=== PATIENT | male | born 1950 | race Caucasian/White ===

== ENCOUNTER 2018-10-25 12:08 | Emergency (ER) | payer OTHER, SELFPAY ==
[2018-10-25] VITALS (69 sets, daily range): BP systolic 85–119; BP diastolic 56–93; PULSE 98–147; RESP 8–42; TEMP 36.3–36.7; O2SAT 95–99
--- NOTE | 2018-10-25 12:28 | ED.GENADUL_ITS ---
Discharge Plan Disposition Patient Disposition: HOME Condition: Improving Discharge Details Chief Complaint: Chest Pain Clinical Impression: Atrial fibrillation with RVR Primary Care Provider: Ac García ED Provider: Nelsy Castro Home Meds and New Rx's Prescriptions: New diltiazem HCl [Cardizem CD] 240 mg capsule,extended release 24hr 240 mg PO DAILY Qty: 30 RF: 0 diltiazem HCl [Cardizem] 30 mg tablet 30 mg PO DIRECTED PRN (Reason: tachycardia) Qty: 10 RF: 0 Eliquis 5 mg tablet 5 mg PO BID Qty: 60 RF: 0 Continued clonazepam 0.5 mg tablet,disintegrating 0.5 mg PO HS MDD 0.5 mg PRN (Reason: insomnia) Qty: 30 RF: 0 [place] Supplement 3 tab PO DAILY RF: 0 aspirin 325 mg Tablet 325 mg PO DAILY PRNRF: 0 Discharge Instructions Instructions: Atrial Fibrillation (ED) Additional Instructions: Take the 240 mg Cardizem CD daily as directed. Take the additional 30 mg of Cardizem as needed for heart rate greater than 140 beats per minute for more than 10 minutes. Call [facility] cardiology Dr. Hill tomorrow to schedule follow-up appointment for reevaluation within the next week. Return immediately to the emergency department any worsening or new concerning symptoms. Discharge Data Discharge Date/Time-TO BE ENTERED AT DEPARTURE: 10/25/18 20:11 Discharge Physician: Nelsy Castro Medical Decision Making 68-year-old male with a history of paroxysmal atrial fibrillation who presents with complaint of palpitations for the past 36 hours. Patient sent from PCP office where he was noted to be in rapid A. fib 140s this morning. Patient denies any chest pain or shortness of breath but does complain of intermittent lightheadedness. Heart rate 140s in atrial fibrillation on arrival. EKG notes a rate of 140s, afib, less than [address] depression noted in inferior and anterior lateral leads, no acute ST elevation. Due to patient's age history and complaint, will place an IV, bolus IV fluids labs and chest x-ray. Will give a dose of Cardizem IV and reassess. Pt is not anticoagulated. Pt may be a candidate for cardioversion. 1230 --patient is refusing chest x-ray. The risks of disability due to refusal explained to patient fully understands. 1340 --patient did not have an initial response to Cardizem, and a dose of metoprolol IV was ordered but just prior to administration, heart rate decreased to 80s-90s. Will repeat EKG. Blood pressure mildly decreased to 80s-90s. 1350 --d/w cardiology -- States if patient is completely sure of his start of symptoms less than 48 hours, can recommend cardioversion, but as he responded to oral medicine with rate control, may be safer to treat with Eliquis for 4 weeks and then follow-up with [facility] EP for cardioversion for weeks. Recommends Cardizem 120 mg ER once daily and can give 30 mg short-acting dose to use for heart rate greater than 140 for more than 10-minutes. Patient states he had some palpitations 1-2 months ago, and states he thinks this episode started yesterday. Patient states he would rather treat with medication rather than cardioversion at this time. 1400 --HR increased back to 130s-140s. Will give a dose of metoprolol 5 mg IV and reassess. 1645 --patient briefly had improvement of heart rate to 80s-90s but now back to 130s. Will start Cardizem drip and admit for rate control. 1900 --heart rate still elevated on 5 mg an hour of Cardizem drip, increased to 10 mg an hour and heart rate decreased to 110s. 1930 --d/w [facility] cardiology Dr. Hill who performed patient's ablation in 2008. States patient does not need Cardizem drip and can be discharged home. Patient has no complaints of chest pain or shortness of breath, 2 negative troponins and remainder of lab work unremarkable, he can be discharged home with follow-up as outpatient. Recommends 240 mg of Cardizem daily with additional 30 mg as needed for heart rate greater than 140 for 10 minutes. Agrees with plan for eliquis 5mg bid. Prior to giving PO cardizem here, HR 110s. Pt w/o acute complaints. Discussed with patient, and he feels good with discharge home. Will give dose of 250 mg p.o. now and tab of 30mg to go for home. Pt instructed to call [facility] tomorrow for cardiology appointment and to return here immediately with any concerns. Medical Records Medical records reviewed: Yes I reviewed the patient's medical records. Lab Data Lab results reviewed: Yes I reviewed the patient's lab results. Laboratory Tests Range/Units 10/25/18 10/25/18 10/25/18 12:30 12:30 16:15 WBC (4.4-10.8) k/cumm 10.15 RBC (4.50-6.00) m/cumm 5.61 Hgb (13.5-17.5) g/dL 16.8 Hct (40.0-50.0) % 50.9 H MCV (80-95) fL 90.7 MCH (27.0-33.0) pg 29.9 MCHC (32.0-36.0) g/dL 33.0 RDW (11.8-14.1) % 13.5 Plt Count (130-400) x1000/uL 250 MPV (8.0-11.0) fL 11.2 H Immature Gran % 0.2 Neutrophils % 69.2 Lymphocytes % 20.0 Monocytes % 8.2 Eosinophils % 2.1 Basophils % 0.3 Absolute Neutrophils (1.2-6.7) k/cumm 7.03 H Absolute Lymphocytes (1.2-3.4) k/cumm 2.03 Absolute Monocytes (0.11-0.7) k/cumm 0.83 H Absolute Eosinophils (0.0-0.7) k/cumm 0.21 Absolute Basophils (0.0-0.2) k/cumm 0.03 Sodium (136-145) mmol/L 139 Potassium (3.5-5.1) mmol/L 4.3 Chloride (98-107) mmol/L 104 Carbon Dioxide (21.0-32.0) mmol/L 25.2 Anion Gap (3-11) mmol/L 9.8 BUN (7-18) mg/dL 17 Creatinine (0.70-1.30) mg/dL 1.23 Estimated GFR/1.73 m2 (mL/min/1.73m2) 58.69 Glucose (70-100) mg/dL 97 Calcium (8.5-10.1) mg/dL 9.2 Magnesium (1.8-2.4) mg/dL 2.1 Total Bilirubin (0.2-1.0) mg/dL 0.8 AST (15-37) U/L 27 ALT (12-78) U/L 35 Alkaline Phosphatase (46-116) U/L 73 Troponin I (0.00-0.06) ng/mL < 0.02 0.02 Total Protein (6.4-8.2) g/dL 7.2 Albumin (3.4-5.0) g/dL 3.8 ECG Data Attestation: I personally reviewed and interpreted this ECG (s) as follows: Interpretation: Initial EK: rate 142, afib, Less than 1mm ST depression noted in II, III, aVF, V4-6. No acute ST elevation. Repeat EK: rate of 92, Atrial bigeminy, PACs, First degree block. No acute ST elevation or depression. HPI General Mode of arrival: ambulatory . Date/Time Provider Initiated Documentation: 10/25/18 12:26 . Limitations to Documentation: no limitations . Information obtained by: patient . HPI Narrative: Patient is a 68-year-old male with a history of paroxysmal atrial fibrillation who presents with palpitations and tachycardia since 130 yesterday morning. Patient admits to occasional lightheadedness but denies any chest pain or shortness of breath. Patient states he was first diagnosed with atrial fibrillation 15 years ago and states he had an ablation approximately 10 years ago. Patient states he had been on medication for atrial fibrillation previously but not since 10 years ago. Patient was seen at PCP office this morning for the same complaint and sent here for evaluation. Related Data Home Medications Medication Instructions Recorded Confirmed [place] Supplement 3 tab PO DAILY 05/16/17 10/25/18 clonazepam 0.5 mg disintegrating 0.5 mg PO HS PRN #30 tab MDD 0.5 mg 09/06/18 10/25/18 tablet apixaban [Eliquis] 5 mg PO BID #60 tab 10/25/18 aspirin 325 mg PO DAILY PRN 10/25/18 10/25/18 diltiazem HCl [Cardizem CD] 240 mg PO DAILY #30 cap 10/25/18 diltiazem HCl [Cardizem] 30 mg PO DIRECTED PRN #10 tab 10/25/18 Previous Rx's Medication Instructions Recorded clonazepam 0.5 mg disintegrating 0.5 mg PO HS PRN #30 tab MDD 0.5 mg 09/06/18 tablet apixaban [Eliquis] 5 mg PO BID #60 tab 10/25/18 diltiazem HCl [Cardizem CD] 240 mg PO DAILY #30 cap 10/25/18 diltiazem HCl [Cardizem] 30 mg PO DIRECTED PRN #10 tab 10/25/18 Allergies Allergy/AdvReac Type Severity Reaction Status Date / Time No Known Drug Allergies Allergy Verified 10/25/18 12:26 General Stated Complaint: Chest Pain PATRICIO: 2 Review of Systems Review of Systems All systems reviewed & are unremarkable except as noted in HPI and below Constitutional Reports as per HPI, Denies chills and Denies fever(s) Eyes Denies blurry vision ENT Reports dizziness, Denies sore throat and Denies throat swelling Cardiovascular Denies chest pain, Reports rapid heart rate, Reports palpitations and Denies dyspnea Respiratory Denies dyspnea Gastrointestinal Denies abdominal pain, Denies diarrhea and Denies vomiting Genitourinary Denies hematuria and Denies dysuria Musculoskeletal Denies back pain and Denies numbness Integumentary/Breasts Denies lesions and Denies rash Neurologic Reports dizziness and Denies numbness Endocrine Reports palpitations Allergic/Immunologic Denies throat swelling [facility] Medical History Paroxysmal atrial fibrillation (Acute) Surgical History History of cardiac radiofrequency ablation (Acute) History of tonsillectomy (Chronic) Family History Mother Breast cancer Father Lung cancer Sister No problems noted. Brother No problems noted. Sister No problems noted. 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 pets and animals: Yes pets and animals: cat(s) and dog(s) frequency: decline to answer duration: decline to answer Smoking/Tobacco Use Status: Former Tobacco Use quit date: 10/18/73 alcohol intake: current alcohol intake frequency: 0-2 drinks per day Alcohol type: wine and hard liquor substance use type: former substance user and marijuana keshawn/pentecostalism: Other special keshawn needs: No Exam Const General: cooperative, healthy appearing and no acute distress HENMT Head: normal to inspection Face and sinus: normal facial exam Eyes General: appearance normal, both eyes and all related structures EOM: EOM intact bilaterally Neck Neck: normal visual inspection and No submandibular swelling Lymphatic: no lymphadenopathy noted Chest Chest: normal inspection of the chest and no tenderness Resp Effort & Inspection: normal respiratory effort and able to speak in complete sentences Auscultation: clear to auscultation bilaterally Cardio Rate: tachycardic Rhythm: abnormal rhythm irregularly irregular GI Inspection: normal to inspection Palpation: soft, not firm, not rigid and nontender Auscultation: normal bowel sounds Skin General skin exam: no rashes or lesions noted Neuro General: alert, awake and oriented x3 Cognition: normal cognition Speech: speech normal Motor: muscle tone normal throughout Sensory Exam: no sensory deficits noted Extrem General: normal to inspection, full ROM, normal capillary refill, no calf tenderness bilaterally and no edema Psych Appearance: grossly normal Mental Status: mental status grossly normal Speech and Movement: speech and movement normal Affect: normal affect Course Vital Signs Temperature 97.3 F L 10/25/18 12:19 Pulse 140 H 10/25/18 12:19 Respiratory Rate 16 10/25/18 12:19 Blood Pressure 110/83 10/25/18 12:19 Pulse Oximetry 98 10/25/18 12:19 Temperature 97.3 F L 10/25/18 12:19 Temperature Source Skin 10/25/18 12:19 Pulse 140 H 10/25/18 12:19 Respiratory Rate 16 10/25/18 12:19 Respiratory Effort Non-Labored 10/25/18 12:23 Blood Pressure 110/83 10/25/18 12:19 Blood Pressure Position Sitting 10/25/18 12:19 Pulse Oximetry 98 10/25/18 12:19 Oxygen Delivery Method Room Air 10/25/18 12:19 Oxygen Flow Rate 0 10/25/18 12:19 Pain Level 1 10/25/18 12:19
[2018-10-25 12:54] LABS: Abs Immature Grans 0.02 k/cumm (0.0-0.09); Absolute Basophil Count 0.03 k/cumm (0.0-0.2); Absolute Eosinophil Count 0.21 k/cumm (0.0-0.7); Absolute Lymphocyte Count 2.03 k/cumm (1.2-3.4); Absolute Monocyte Count 0.83 k/cumm (0.11-0.7); Absolute Neutrophil Count 7.03 k/cumm (1.2-6.7); Basophils % 0.3; Eosinophils % 2.1; HCT 50.9 % (40.0-50.0); HGB 16.8 g/dL (13.5-17.5); Immature Grans % 0.2; Mean Corpuscular Hemoglobin 29.9 pg (27.0-33.0); Mean Corpuscular Volume 90.7 fL (80-95); Mean Platelet Volume 11.2 fL (8.0-11.0); Monocytes % 8.2; Neutrophils % 69.2; Platelet Count 250 x1000/uL (130-400); RBC 5.61 m/cumm (4.50-6.00); RBC Distribution Width 13.5 % (11.8-14.1); White Blood Cell Count 10.15 k/cumm (4.4-10.8)
[2018-10-25] MEDS: Normal Saline 1,000 ML 1000 ML IV (13:02)
[2018-10-25 13:18] LABS: ALT 35 U/L (12-78); AST 27 U/L (15-37); Albumin 3.8 g/dL (3.4-5.0); Alkaline Phosphatase 73 U/L (46-116); Anion Gap 9.8 mmol/L (3-11); BUN 17 mg/dL (7-18); Bilirubin, Total 0.8 mg/dL (0.2-1.0); CO2 25.2 mmol/L (21.0-32.0); CREATININE 1.23 mg/dL (0.70-1.30); Calcium 9.2 mg/dL (8.5-10.1); Chloride 104 mmol/L (98-107); Estimated GFR 58.69 (mL/min/1.73m2); Glucose 97 mg/dL (70-100); Magnesium 2.1 mg/dL (1.8-2.4); Potassium 4.3 mmol/L (3.5-5.1); Sodium 139 mmol/L (136-145); Total Protein 7.2 g/dL (6.4-8.2); Troponin I < 0.02 ng/mL (0.00-0.06)
[2018-10-25] MEDS: Enoxaparin 100 MG/ML SYR 88 MG SC (14:46)
[2018-10-25] MEDS: Metoprolol 5 MG/5 ML VIAL IVP (14:58)
[2018-10-25 16:41] LABS: Troponin I 0.02 ng/mL (0.00-0.06)
== END 2018-10-25 20:11 | disposition home or self-care (01) ==
LOC: ER 17:35
PROVIDERS: Emergency Provider Physician Assistant; PCP Emergency Medicine
DX: I48.0 Paroxysmal atrial fibrillation (principal)
CPT/HCPCS: 36415; 80053; 93005; 96361; 96365; 96372; 96375; 96376; 99284; 83735; 84484; 85025; 93010; J1650

== ENCOUNTER 2018-11-02 15:42 | Outpatient (CLI) | payer OTHER, SELFPAY ==
[2018-11-02 16:54] LABS: TSH 3.31 uIU/mL (0.358-3.74)
== END 2018-11-02 16:02 ==
PROVIDERS: PCP Emergency Medicine; Visit Provider Emergency Medicine
DX: E03.9 Hypothyroidism, unspecified (principal)
CPT/HCPCS: 36415; 84443

== ENCOUNTER 2018-11-04 01:52 | Outpatient (CLI) | payer OTHER, SELFPAY ==
--- NOTE | 2018-11-28 09:04 | ZIOP_ITS ---
ZIO PATCH CARDIAC MONITORING DEVICE DATE OF DICTATION NOVEMBER 28, 2018 INDICATION Paroxysmal atrial fibrillation. ANALYISIS TIME - 13 Days and 19 hours. FINDINGS Predominant underlying rhythm was sinus rhythm. Average heart rate of 36 beats per minute. Minimum heart rate 53 and max heart rate 207 beats per minute. 30 bursts of SVT. The longest lasting 2 minutes and 39 seconds with a max heart rate of 207 beats per minute and an average heart rate of 152 beats per minute. Atrial fibrillation occurred with an overall 1% burden. Heart rate while in atrial fibrillation ranging from 88 to 177 beats per minute with an average heart rate of 127 beats per minute. The longest episode of atrial fibrillation lasting 3 hours and 57 minutes. Rare isolated atrial ectopy. Rare isolated ventricular ectopy. No nonsustained VT. No significant pauses or edison arrhythmias. 2 patient triggered events, one corresponding to sinus rhythm and one corresponding to atrial fibrillation. 2 diary entries with skipped/irregular heart beat one corresponding to sinus rhythm and another time corresponding to sinus rhythm with some brief bursts of SVT. Elizabeth Puente M.D. KALA/ricardo T - 11/28/2018
== END 2018-11-04 02:12 ==
PROVIDERS: PCP Emergency Medicine; Visit Provider Emergency Medicine
DX: I48.0 Paroxysmal atrial fibrillation (principal); I47.1 Supraventricular tachycardia

== ENCOUNTER 2019-05-04 00:19 | Outpatient (CLI) | payer OTHER, SELFPAY ==
--- NOTE | 2019-05-04 08:37 | MERGE_ITS ---
*[facility]* *[facility]* [address] [place] [address] Date of study: 05/04/2019 Transthoracic Echocardiography M-mode, complete 2D, complete spectral Doppler, and color Doppler *STUDY CONCLUSIONS* Summary: 1. Left ventricle: The cavity size was normal. Wall thickness was normal. Systolic function was normal. The estimated ejection fraction was 60-65%. Wall motion was normal; there were no regional wall motion abnormalities. Diastolic parameters were normal. There was no evidence of elevated ventricular filling pressure by Doppler parameters. 2. Mitral valve: There was mild regurgitation. 3. Right ventricle: The cavity size was normal. Wall thickness was normal. Systolic function was normal. 4. Right atrium: The atrium was mildly dilated. 5. Atrial septum: No defect or patent foramen ovale was identified. 6. Tricuspid valve: There was moderate regurgitation. 7. Pulmonary arteries: Pulmonary systolic pressure was in the range of 25mm Hg to 35mm Hg. 8. Inferior vena cava: The vessel was dilated. The respirophasic diameter changes were blunted (less than 50%), consistent with elevated central venous pressure. *PATIENT PRESENTATION* Height: 182.9cm (72in ) S/D Pressure: 124 / 79 Weight: 90.7kg (199.6lb ) BSA: 2.16m^2 Test start time: 08:30 AM. Test stop time: 09:20 AM. PERFORMING Unknown PERFORMING [facility] NUTRITION SERVICES ASSISTANT Pretty Hwang Andrea L ORDERING Carey, Andrea L REFERRING Carey, Andrea L *PROCEDURE DATA* Procedure information: This study was interpreted by [facility]. Pertinent images and digital data are archived for permanent storage and are available for subsequent review. No prior study was available for comparison. Study status: Routine. Transthoracic echocardiography. M-mode, complete 2D, complete spectral Doppler, and color Doppler. A Transthoracic Echocardiogram was performed. Scanning was performed from the parasternal, apical, subcostal, and suprasternal notch acoustic windows. Images were obtained using an [employer] 2000 cardiac ultrasound machine. Image quality was good. Study completion: The patient tolerated the procedure well. History: PMH: A Fib. *CARDIAC ANATOMY* Left ventricle: The cavity size was normal. Wall thickness was normal. Systolic function was normal. The estimated ejection fraction was 60-65%. Wall motion was normal; there were no regional wall motion abnormalities. The tissue Doppler parameters were normal. Diastolic parameters were normal. There was no evidence of elevated ventricular filling pressure by Doppler parameters. Aortic valve: Trileaflet. Doppler: There was no stenosis. There was no regurgitation. VTI ratio of LVOT to aortic valve: 0.85. Valve area (VTI): 2.5cm^2. Indexed valve area (VTI): 1.1cm^2/m^2. Peak velocity ratio of LVOT to aortic valve: 0.8. Valve area (Vmax): 2.3cm^2. Indexed valve area (Vmax): 1.1cm^2/m^2. Mean velocity ratio of LVOT to aortic valve: 0.76. Valve area (Vmean): 2.2cm^2. Indexed valve area (Vmean): 1cm^2/m^2. Mean gradient (S): 2.7mm Hg. Peak gradient (S): 5.1mm Hg. Aorta: Aortic root: The aortic root was normal in size. Ascending aorta: The ascending aorta was mildly dilated. Mitral valve: Doppler: There was no evidence for stenosis. There was mild regurgitation. Valve area by pressure half-time: 4cm^2. Indexed valve area by pressure half-time: 1.8cm^2/m^2. Peak gradient (D): 2.2mm Hg. Left atrium: The atrium was normal in size. Atrial septum: No defect or patent foramen ovale was identified. Right ventricle: The cavity size was normal. Wall thickness was normal. Systolic function was normal. Pulmonic valve: Doppler: There was no evidence for stenosis. There was no significant regurgitation. Peak gradient (S): 4.6mm Hg. Tricuspid valve: Doppler: There was moderate regurgitation. Pulmonary artery: Poorly visualized. Pulmonary systolic pressure was in the range of 25mm Hg to 35mm Hg. Right atrium: The atrium was mildly dilated. Pericardium: There was no pericardial effusion. Systemic veins: Inferior vena cava: The vessel was dilated. The respirophasic diameter changes were blunted (less than 50%), consistent with elevated central venous pressure. Measurements Left ventricle Value Reference LV ID, ED, PLAX 4.5 cm 3.5 - 6.0 LV ID, ES, PLAX 2.9 cm 2.1 - 4.0 LV PW thickness, ED, PLAX 0.9 cm LV end-diastolic volume, 1-p A2C 100 ml LV ejection fraction, 1-p A2C 61 % LV end-diastolic volume, 1-p A4C 80 ml LV ejection fraction, 1-p A4C 53 % LV e', lateral 0.111 m/sec LV E/e', lateral 7 LV e', medial 0.111 m/sec LV E/e', medial 7 LV e', average 0.111 m/sec LV E/e', average 7 Ventricular septum Value Reference IVS thickness, ED, PLAX 0.9 cm LVOT Value Reference LVOT ID, A-P 1.9 cm LVOT area 2.9 cm^2 LVOT peak velocity, S 0.9 m/sec LVOT mean velocity, S 0.59 m/sec LVOT VTI, S 17.8 cm LVOT peak gradient, S 3.3 mm Hg LVOT mean gradient, S 1.6 mm Hg Stroke volume (SV), LVOT DP 52 ml Stroke index (SV/bsa), LVOT DP 24 ml/m^2 Aortic valve Value Reference Aortic valve peak velocity, S 1.1 m/sec Aortic valve mean velocity, S 0.8 m/sec Aortic valve VTI, S 21.0 cm Aortic mean gradient, S 2.7 mm Hg Aortic peak gradient, S 5.1 mm Hg VTI ratio, LVOT/AV 0.85 Aortic valve area, VTI 2.5 cm^2 Velocity ratio, peak, LVOT/AV 0.8 Aortic valve area, peak velocity 2.3 cm^2 Velocity ratio, mean, LVOT/AV 0.76 Aortic valve area, mean velocity 2.2 cm^2 Aortic valve area/bsa, mean velocity 1 cm^2/m^2 Aorta Value Reference Aortic root ID, ED 3.8 cm Ascending aorta ID, A-P, S 3.7 cm Left atrium Value Reference LA ID, A-P, ES 3.6 cm LA ID/bsa, A-P 1.6 cm/m^2 <=2.2 LA volume, ES, 2-p 66 ml LA volume/bsa, ES, 2-p 30 ml/m^2 LA/aortic root ratio 0.94 Mitral valve Value Reference Mitral E-wave peak velocity 0.74 m/sec Mitral A-wave peak velocity 0.33 m/sec Mitral deceleration time 191 ms 150 - 230 Mitral pressure half-time 55 ms Mitral peak gradient, D 2.2 mm Hg Mitral E/A ratio, peak 2.23 Mitral valve area, PHT, DP 4 cm^2 Tricuspid valve Value Reference Tricuspid regurg peak velocity 2.5 m/sec Tricuspid peak RV-RA gradient 25.9 mm Hg Right atrium Value Reference RA area, ES, A4C (H) 21.5 cm^2 8.3 - 19.5 Pulmonic valve Value Reference Pulmonic peak gradient, S 4.6 mm Hg Legend: (L) and (H) sarah values outside specified reference range. I have personally reviewed the images and have reviewed and edited the reported findings. Electronically signed by Gurpreet Winn MD 05/04/2019 16:37
== END 2019-05-04 00:39 ==
PROVIDERS: PCP Emergency Medicine; Visit Provider Nurse Practitioner Family
DX: I48.91 Unspecified atrial fibrillation (principal); I47.1 Supraventricular tachycardia; I34.0 Nonrheumatic mitral (valve) insufficiency; I36.1 Nonrheumatic tricuspid (valve) insufficiency
CPT/HCPCS: 93306

== ENCOUNTER 2019-07-07 12:13 | Outpatient (CLI) | payer OTHER, SELFPAY | END 2019-07-07 12:33 | PROVIDERS: PCP Emergency Medicine; Visit Provider Internal Medicine Cardiovascular Disease | DX: I48.91 Unspecified atrial fibrillation (principal) | CPT/HCPCS: 93005; 93010 ==

== ENCOUNTER 2019-10-25 02:25 | Outpatient (CLI) | payer OTHER, SELFPAY ==
[2019-10-25 16:03] LABS: Calculated LDL 84 mg/dL; Cholesterol 140 mg/dL (<200); HDL Cholesterol 39 mg/dL (40-60); Triglyceride 89 mg/dL (<150)
[2019-10-27 11:23] LABS: PSA, Screening 2.7 ng/mL (0.0-4.5)
== END 2019-10-25 02:45 ==
PROVIDERS: PCP Emergency Medicine; Visit Provider Emergency Medicine
DX: Z00.00 Encounter for general adult medical examination without abnormal findings (principal); Z13.220 Encounter for screening for lipoid disorders; Z12.5 Encounter for screening for malignant neoplasm of prostate
CPT/HCPCS: 36415; 80061; 84153

== ENCOUNTER 2020-04-12 08:33 | Day surgery (SDC) | payer OTHER, SELFPAY ==
[2020-04-12 08:45] VITALS: BP 129/85; PULSE 76; RESP 16; TEMP 36; O2SAT 98
[2020-04-12] MEDS: Lactated Ringers 1,000 ML 80 ML IV (08:50)
--- NOTE | 2020-04-12 10:43 | BOWEL_PTH ---
PATIENT: Juan Luis Kirby LOC: [facility] U#:[id number] AGE/SX: 69/M ROOM: RE04/12/[address]: Rosy Rowland MD : 1950 BED: DIS: 04/12/2020 SPEC #: [id number] RECD: 04/12/20 12:42 STATUS: AMEYA REQ #: [id number] SUKUMAR: 04/12/20 10:[address]: Rosy Rowland DEPT: Surgical Specimen RECD BY: Kassy Wells ENTERED: 04/12/20 12:43 SP TYPE: Bowel OTHR DR: Ac García DO Tissues: 1 - BIOPSY BOWEL Procedures: GROSS AND MICRO LEVEL 4 Comments: [id number]
--- NOTE | 2020-04-12 10:57 | PDOC.DSDIS_ITS ---
Discharge Plan Disposition Patient Disposition: HOME Condition: Good Discharge Details Reason For Visit: Colonoscopy Attending Provider: Rosy Rowland Primary Care Provider: Ac García Home Meds and New Rx's Prescriptions: Continued clonazepam 0.5 mg tablet,disintegrating 0.5 mg PO HS MDD 0.5 mg PRN (Reason: insomnia) Qty: 30 RF: 0 doxycycline hyclate 50 mg tablet 50 mg PO BID Qty: 180 RF: 3 diltiazem HCl [Cardizem CD] 240 mg capsule,extended release 24hr 240 mg PO DAILY 90 Days Qty: 90 RF: 3 [place] Supplement 3 tab PO DAILY RF: 0 diltiazem HCl [Cardizem] 30 mg tablet 30 mg PO DIRECTED PRN (Reason: tachycardia) Qty: 10 RF: 0 Discontinued polyethylene glycol 3350 17 gram/dose powder 238 g PO ONCE Qty: 238 RF: 0 bisacodyl [Dulcolax (bisacodyl)] 5 mg tablet,delayed release (DR/EC) 5 mg PO ONCE Qty: 4 RF: 0 Discharge Instructions Additional Instructions: Findings: Diverticulosis was present. One tiny polyp was removed from the rectum. My office will contact you with biopsy results. Follow up: If the rectal polyp is adenomatous, you will need a colonoscopy in 5 years. Please call if you develop: fevers >101.5 Nausea or Vomiting Abdominal pain that is not transient DAY SURGERY UNIT POST COLONOSCOPY INSTRUCTIONS 1. Because there will be medication in your system for the next 24 hours, you may feel a little sleepy. Your coordination will be affected. Therefore: a. Do not drive or operate dangerous equipment for 24 hours. b. Do not drink alcohol beverages for 24 hours (not even beer). c. Plan to go home and rest for the day. 2. Generally there are no restrictions on your activity after a day or so has gone by, but you may feel a bit fatigued for a few days. 3 After you arrive home you may have a light meal and return to a normal diet as you can tolerate it without feeling sick to your stomach. 4. After surgery, you may feel pain or discomfort. This should be only transient, but if it persists please contact your doctor. 5. If there are any questions regarding the findings of your procedure, please feel free to contact your doctor. 6. If you are unable to contact your doctor with a problem, contact the hospital at [phone]. 1. Continue all your regular medications unless directed otherwise. I understand the above instructions and have no questions. Signature of Patient or Responsible Adult Escort Date/Time Name of Responsible Adult Escort Signature of Nurse Date/Time Activity:: Activity as Tolerated Diet:: As Tolerated Discharge Orders Discharge Orders: Discharge Order (Routine); Ordered 04/12/20 Ordered By: Rosy Rowland DS: Diagnosis Discharge Diagnosis (1) Rectal polyp: Status: Acute (2) Diverticulosis: Status: Acute
--- NOTE | 2020-04-12 10:59 | W.COLOREPORT ---
Date of service: 04/12/20 Time of Service: 10:59 Colonoscopy Report Date of procedure: 04/12/20 Pre-op diagnosis general: Screening Post-op diagnosis procedure note: other (Diverticulosis, rectal polyp) Procedure: Colonoscopy with cold forceps polypectomy Surgeon: Rosy Rowland Anesthesia proc note operative: MAC Disposition: same day Indications: This patient presents for routine colon screening. His last procedure in 2005 showed diverticulosis. He has no symptoms or FH colon cancer. Procedure Description: The patient was placed in the left Mullins position. Propofol was titrated to sedation. Digital rectal examination revealed no abnormalities. The scope was advanced to the cecum without difficulty. The ileocecal valve and appendiceal orifice were clearly identified. The prep was good. The scope was slowly withdrawn over the course of greater than 6 minutes with no abnormalities seen in the ascending, transverse, descending, sigmoid colon. A diminuitive polyp was removed from the rectum with the cold forceps. Retroflexed view showed prominent internal hemorrhoids. The patient tolerated the procedure well and was stable to recovery. Colonoscopy may be indicated in 5 years if the biopsy shows an adenomatous polyp.
[2020-04-12 11:32] VITALS: BP 120/82; PULSE 65; RESP 16; TEMP 36.1; O2SAT 98
== END 2020-04-12 11:55 | disposition home or self-care (01) ==
PROVIDERS: PCP Emergency Medicine; Visit Provider Surgery
PROC: 0DJD8ZZ Inspection of Lower Intestinal Tract, Via Natural or Artificial Opening Endoscopic (ICD-10-PCS; CPT 45378; principal; 2020-04-12 10:15)
DX: Z12.11 Encounter for screening for malignant neoplasm of colon (principal); K62.1 Rectal polyp; K57.30 Diverticulosis of large intestine without perforation or abscess without bleeding
CPT/HCPCS: 45380; 88305; J2001

== ENCOUNTER 2023-08-04 15:05 | Outpatient (CLI) | payer MEDICARE, SELFPAY ==
--- NOTE | 2023-08-04 15:00 | RT.EKG_ITS ---
APPROVED REPORT Exam: Resting ECG Reason for Exam: afib Patient Location: O HR:134 bpm ECG Measurements Heart Rate 134 AXIS IL 114 P 263 QRSd 82 QRS 66 QT 312 T -56 QTc 466 Conclusion Atrial flutter
== END 2023-08-04 15:06 | disposition home or self-care (01) ==
LOC: DI.CM 15:06
PROVIDERS: PCP Nurse Practitioner Family; Visit Provider Nurse Practitioner Family
DX: I48.91 Unspecified atrial fibrillation (principal)
CPT/HCPCS: 93010

== ENCOUNTER 2023-08-06 13:56 | Outpatient (CLI) | payer MEDICARE, SELFPAY ==
--- NOTE | 2023-08-06 13:45 | RT.EKG_ITS ---
APPROVED REPORT Exam: Resting ECG Reason for Exam: A-Fib Patient Location: O HR:67 bpm ECG Measurements Heart Rate 67 AXIS MS [id number] P [id number] QRSd 107 QRS 62 QT 406 T 54 QTc 429 Conclusion Atrial flutter with predominant 4:1 AV block...A-rate 272, multiple Ps Minimal ST elevation, inferior leads...ST >0.06mV, II III aVF
== END 2023-08-06 13:57 | disposition home or self-care (01) ==
LOC: DI.CM 13:56
PROVIDERS: PCP Nurse Practitioner Family; Visit Provider Nurse Practitioner Family
DX: I48.91 Unspecified atrial fibrillation (principal)
CPT/HCPCS: 93010

== ENCOUNTER 2023-08-11 04:06 | Outpatient (CLI) | payer MEDICARE, SELFPAY ==
[2023-08-11 13:06] LABS: ALT 102 U/L (16-63); AST 39 U/L (15-37); Albumin 4.1 g/dL (3.4-5.0); Alkaline Phosphatase 102 U/L (46-116); Anion Gap 7.4 mmol/L (3-11); BUN 17 mg/dL (7-18); Bilirubin, Total 0.5 mg/dL (0.2-1.0); CO2 27.6 mmol/L (21.0-32.0); CREATININE 1.2 mg/dL (0.70-1.30); Calcium 9.2 mg/dL (8.5-10.1); Chloride 102 mmol/L (98-107); Estimated GFR 64.25 (mL/min/1.73m2); Glucose 55 mg/dL (74-106); Sodium 137 mmol/L (136-145); TSH (W/Ref FT4) 2.78 uIU/mL (0.36-3.74); Total Protein 7.4 g/dL (6.4-8.2)
== END 2023-08-11 04:07 | disposition home or self-care (01) ==
LOC: LBO 04:07
PROVIDERS: PCP Nurse Practitioner Family; Visit Provider Nurse Practitioner Family
DX: I48.92 Unspecified atrial flutter (principal); R53.83 Other fatigue
CPT/HCPCS: 36415; 80053; 84443

== ENCOUNTER 2023-08-13 13:00 | Outpatient (CLI) | payer MEDICARE, SELFPAY ==
--- NOTE | 2023-08-13 13:00 | RT.EKG_ITS ---
APPROVED REPORT Exam: Resting ECG Reason for Exam: Follow up arrhythmia Patient Location: O HR:66 bpm ECG Measurements Heart Rate 66 AXIS PA [id number] P [id number] QRSd 92 QRS 63 QT 415 T 59 QTc 435 Conclusion Atrial flutter...A-rate 245
== END 2023-08-13 13:01 | disposition home or self-care (01) ==
LOC: DI.CARD 13:01
PROVIDERS: PCP Nurse Practitioner Family; Visit Provider Internal Medicine Cardiovascular Disease
DX: I48.91 Unspecified atrial fibrillation (principal)
CPT/HCPCS: 93010

== ENCOUNTER 2023-08-31 18:06 | Outpatient (CLI) | payer MEDICARE, SELFPAY ==
[2023-08-31 14:04] LABS: HCT 50.3 % (40.0-50.0); HGB 16.5 g/dL (13.5-17.5); MCH 30.2 pg (27.0-33.0); MCHC 32.8 % (32.0-36.0); MCV 92 fL (80-95); MPV 10.1 fL (8.0-11.0); Platelet Count 223 10^3/uL (130-400); RBC 5.46 10^6/uL (4.36-5.78); RDW-SD 43.9 fL; WBC 6.97 10^3/uL (4.4-10.8)
[2023-08-31 15:22] LABS: Uric Acid 6.5 mg/dL (3.5-7.2)
== END 2023-08-31 18:07 | disposition home or self-care (01) ==
LOC: LBO 18:06
PROVIDERS: PCP Nurse Practitioner Family; Visit Provider Nurse Practitioner Family
DX: M79.675 Pain in left toe(s) (principal); I48.91 Unspecified atrial fibrillation
CPT/HCPCS: 36415; 85027; 84550

== ENCOUNTER 2023-09-20 06:30 | Day surgery (SDC) | payer MEDICARE, SELFPAY ==
[2023-09-20] VITALS (9 sets, daily range): BP systolic 71–113; BP diastolic 47–87; PULSE 59–120; RESP 10–20; TEMP 36–36.4; O2SAT 97–100; BMI 25.9
--- NOTE | 2023-09-20 06:30 | RT.EKG_ITS ---
APPROVED REPORT Exam: Resting ECG Reason for Exam: Cardioversion post op Patient Location: O HR:120 bpm ECG Measurements Heart Rate 120 AXIS CO 66 P 0 QRSd 77 QRS 67 QT 300 T 20 QTc 424 Conclusion Probable atrial flutter Consider anteroseptal infarct...Q >30mS, dimin R, V1-V2 Borderline ST depression, anterolateral leads...ST <-0.07mV, I aVL V2-V6
--- NOTE | 2023-09-20 07:28 | ANES.PREOP_ITS ---
General Info Date of Service Date Performed: 09/20/23 Height: 6 ft Weight: 87 kg Body Mass Index (BMI): 25.9 Surgical Procedure: Operation Date: 09/20/23 07:30 Proposed Procedure Side Surgeon p Cardioversion Jhon Aj MD Meds Allergies and Home Medications Allergies Allergy/AdvReac Type Severity Reaction Status Date / Time tamsulosin AdvReac Intermediate Dizziness/L Verified 09/20/23 06:38 [place] Home Medication Medication Instructions Recorded diltiazem HCl 30 mg tablet 30 mg PO DIRECTED PRN 10/25/18 (Cardizem) tachycardia #10 tabs diltiazem HCl 240 mg See Rx Instructions .Route 06/14/23 capsule,extended release 24 hr .COMPLEX #90 caps metoprolol succinate 25 mg 25 mg PO DAILY #90 tabs 08/06/23 tablet,extended release 24 hr apixaban 5 mg tablet (Eliquis) 5 mg PO BID #60 tabs 08/13/23 Current Visit Medications: Current Medications Generic Name Dose Route Start Last Admin Trade Name Freq PRN Reason Stop Dose Admin Sodium Chloride 1,000 mls @ 30 mls/hr 09/20/23 06:00 Saline 1000ml Bag IV 10/20/23 05:59 [facility] Active Problems Active Problems: Problem Status Onset Code Atrial flutter I48.92 Diverticulosis K57.90 Rectal polyp K62.1 Abnormal stress test 09/16/00 R94.39 Atrial fibrillation I48.91 Diverticulosis of colon without diverticulitis 09/16/05 K57.30 Hydrocele N43.3 Low HDL (under 40) 06/06/09 E78.6 Psoriasis L40.9 Rosacea L71.9 Medical History Medical History Basal cell carcinoma (BCC) in situ of skin Was removed. Normal colonoscopy (~03/2020) Paroxysmal atrial fibrillation F/U with Dr. Caballero on 02/29/20 Supraventricular tachycardia (09/16/99) Surgical History Surgical History History of cardiac radiofrequency ablation History of tonsillectomy Tobacco Smoking/Tobacco Use Status: Former Tobacco Use Passive smoking exposure: Yes Alcohol Alcohol Intake: current Alcohol intake frequency: a few times a month Alcohol type: wine and hard liquor Substance Use Substance use: Never Substance use type: former substance user Vital Signs and Lab Results Vital Signs Most Recent Vital Signs in EMR: Most Recent Vital Signs Temp Pulse Resp BP Pulse Ox 36.2 C L 120 H 18 113/87 97 09/20/23 06:25 09/20/23 06:25 09/20/23 06:25 09/20/23 06:25 09/20/23 06:25 Lab Results Blood Type / Crossmatch: No Data to Display Complete Blood Count: White Blood Count 6.97 10^3/uL (4.4-10.8) 08/31/23 13:59 Red Blood Count 5.46 10^6/uL (4.36-5.78) 08/31/23 13:59 Hemoglobin 16.5 g/dL (13.5-17.5) 08/31/23 13:59 Hematocrit 50.3 % (40.0-50.0) H 08/31/23 13:59 Platelet Count 223 10^3/uL (130-400) 08/31/23 13:59 Complete Metabolic Panel: No Data to Display Liver Function Panel: No Data to Display Coagulation Panel: No Data to Display Cardiac Panel: No Data to Display Arterial Blood Gas: No Data to Display Venous Blood Gas: No Data to Display Pancreas Panel: No Data to Display Thyroid Panel: No Data to Display Infectious Disease: No Data to Display Blood Cultures: No Data to Display Toxicology Panel: No Data to Display Imaging and Studies Imaging and Studies Study information below may be from another EMR and interpreted by another provider. Please see original notes in EMR for more complete details. EKG Summary: EKG PATIENT NAME: Elisabet Linn UNIT #: [id number] ORDERING PROVIDER: Jhon Aj M.D. PRIMARY CARE PROVIDER: MAYURI IVY NP DATE/TIME OF SERVICE: 09/20/23 0639 : 1950 PERFORMING LOCATION: [facility] APPROVED REPORT Exam: Resting ECG Reason for Exam: Cardioversion post op Patient Location: O HR:120 bpm ECG Measurements Heart Rate 120 AXIS OH 66 P 0 QRSd 77 QRS 67 QT 300 T20 QTc 424 Conclusion Probable atrial flutter Consider anteroseptal infarct...Q >30mS, dimin R, V1-V2 Borderline ST depression, anterolateral leads...ST <-0.07mV, I aVL V2-V6 <Electronically signed by JHON AJ MD in OV> E-Sign Date: 09/20/23 E-Sign Time: 730 Echocardiogram Summary: Patient Name: ELISABET LINN Unit #: [id number] Loc: DI Ordering Provider: Cecil Omer 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 Left ventricle: The cavity size was normal. Wall thickness was normal. Systolic function was normal. The estimated ejection fraction was 60-65%. Wall motion was normal; there were no regional wall motion abnormalities. Diastolic parameters were normal. There was no evidence of elevated ventricular filling pressure by Doppler parameters. 2. Mitral valve: There was mild regurgitation. 3. Right ventricle: The cavity size was normal. Wall thickness was normal. Systolic function was normal. 4. Right atrium: The atrium was mildly dilated. 5. Atrial septum: No defect or patent foramen ovale was identified. 6. Tricuspid valve: There was moderate regurgitation. 7. Pulmonary arteries: Pulmonary systolic pressure was in the range of 25mm Hg to 35mm Hg. 8. Inferior vena cava: The vessel was dilated. The respirophasic diameter changes were blunted (less than 50%), consistent with elevated central venous pressure. *PATIENT PRESENTATION* Height: 182.9cm (72in ) S/D Pressure: 124 / 79 Weight: 90.7kg (199.6lb ) BSA: 2.16m^2 Test start time: 08:30 AM. Test stop time: 09:20 AM. PERFORMING Unknown PERFORMING [facility] GRADUATE NURSE Pretty Hwang Andrea L ORDERING Carey, Andrea L REFERRING Carey, Andrea L *PROCEDURE DATA* Procedure information: This study was interpreted by [facility]. Pertinent images and digital data are archived for permanent storage and are available for subsequent review. No prior study was available for comparison. Study status: Routine. Transthoracic echocardiography. M-mode, complete 2D, complete spectral Doppler, and color Doppler. A Transthoracic Echocardiogram was performed. Scanning was performed from the parasternal, apical, subcostal, and suprasternal notch acoustic windows. Images were obtained using an [employer] SC 2000 cardiac ultrasound machine. Image quality was good. Study completion: The patient tolerated the procedure well. History: PMH: A Fib. *CARDIAC ANATOMY* Left ventricle: The cavity size was normal. Wall thickness was normal. Systolic function was normal. The estimated ejection fraction was 60-65%. Wall motion was normal; there were no regional wall motion abnormalities. The tissue Doppler parameters were normal. Diastolic parameters were normal. There was no evidence of elevated ventricular filling pressure by Doppler parameters. Aortic valve: Trileaflet. Doppler: There was no stenosis. There was no regurgitation. VTI ratio of LVOT to aortic valve: 0.85. Valve area (VTI): 2.5cm^2. Indexed valve area (VTI): 1.1cm^2/m^2. Peak velocity ratio of LVOT to aortic valve: 0.8. Valve area (Vmax): 2.3cm^2. Indexed valve area (Vmax): 1.1cm^2/m^2. Mean velocity ratio of LVOT to aortic valve: 0.76. Valve area (Vmean): 2.2cm^2. Indexed valve area (Vmean): 1cm^2/m^2. Mean gradient (S): 2.7mm Hg. Peak gradient (S): 5.1mm Hg. Aorta: Aortic root: The aortic root was normal in size. Ascending aorta: The ascending aorta was mildly dilated. Mitral valve: Doppler: There was no evidence for stenosis. There was mild regurgitation. Valve area by pressure half-time: 4cm^2. Indexed valve area by pressure half-time: 1.8cm^2/m^2. Peak gradient (D): 2.2mm Hg. Left atrium: The atrium was normal in size. Atrial septum: No defect or patent foramen ovale was identified. Right ventricle: The cavity size was normal. Wall thickness was normal. Systolic function was normal. Pulmonic valve: Doppler: There was no evidence for stenosis. There was no significant regurgitation. Peak gradient (S): 4.6mm Hg. Tricuspid valve: Doppler: There was moderate regurgitation. Pulmonary artery: Poorly visualized. Pulmonary systolic pressure was in the range of 25mm Hg to 35mm Hg. Right atrium: The atrium was mildly dilated. Pericardium: There was no pericardial effusion. Systemic veins: Inferior vena cava: The vessel was dilated. The respirophasic diameter changes were blunted (less than 50%), consistent with elevated central venous pressure. Measurements Left ventricle Value Reference LV ID, ED, PLAX 4.5 cm 3.5 - 6.0 LV ID, ES, PLAX 2.9 cm 2.1 - 4.0 LV PW thickness, ED, PLAX 0.9 cm LV end-diastolic volume, 1-p A2C 100 ml LV ejection fraction, 1-p A2C 61 % LV end-diastolic volume, 1-p A4C 80 ml LV ejection fraction, 1-p A4C 53 % LV e', lateral 0.111 m/sec LV E/e', lateral 7 LV e', medial 0.111 m/sec LV E/e', medial 7 LV e', average 0.111 m/sec LV E/e', average 7 Ventricular septum Value Reference IVS thickness, ED, PLAX 0.9 cm LVOT Value Reference LVOT ID, A-P 1.9 cm LVOT area 2.9 cm^2 LVOT peak velocity, S 0.9 m/sec LVOT mean velocity, S 0.59 m/sec LVOT VTI, S 17.8 cm LVOT peak gradient, S 3.3 mm Hg LVOT mean gradient, S 1.6 mm Hg Stroke volume (SV), LVOT DP 52 ml Stroke index (SV/bsa), LVOT DP 24 ml/m^2 Aortic valve Value Reference Aortic valve peak velocity, S 1.1 m/sec Aortic valve mean velocity, S 0.8 m/sec Aortic valve VTI, S 21.0 cm Aortic mean gradient, S 2.7 mm Hg Aortic peak gradient, S 5.1 mm Hg VTI ratio, LVOT/AV 0.85 Aortic valve area, VTI 2.5 cm^2 Velocity ratio, peak, LVOT/AV 0.8 Aortic valve area, peak velocity 2.3 cm^2 Velocity ratio, mean, LVOT/AV 0.76 Aortic valve area, mean velocity 2.2 cm^2 Aortic valve area/bsa, mean velocity 1 cm^2/m^2 Aorta Value Reference Aortic root ID, ED 3.8 cm Ascending aorta ID, A-P, S 3.7 cm Left atrium Value Reference LA Anesthesia Assessment and Plan Anesthesia History Personal History: No History of Anesthesia Complications Family History: No Family History of Anesthesia Complications Exercise Tolerance Exercise Tolerance: Metabolic Equivalents>4 Pertinent Negatives Pertinent Negatives: No Symptoms of GERD, No Major Cardiovascular Symptoms or Complaints, No Major Pulmonary Symptoms or Complaints and No History of CVA/TIA Cardiac & Pulmonary Exam Cardiac Exam: Other (Afib) Pulmonary Exam: Clear Bilateral Breath Sounds Implantable Cardiac Device Does patient have a Pacemaker or an ICD?: No Airway Exam Known Difficult Airway: No Mallampati Class: 1 Mouth Opening: Normal (> 3cm) Thyromental Distance: Greater than 3 cm Neck Range of Motion: Full ROM Neck Circumference: Normal Teeth Condition: Normal Dentition and Generalized Poor Dentition ASA Classification ASA Score: ASA 2 Emergency Case?: No NPO Status NPO Status: NPO Clears >2 hours, Solids >8 hours Anesthesia Plan Resuscitation Status: Full Code Anesthesia Technique: General Anesthesia Airway Planned: Natural Airway Monitors Used: Standard Monitors
--- NOTE | 2023-09-20 07:30 | RT.EKG_ITS ---
APPROVED REPORT Exam: Resting ECG Reason for Exam: Cardioversion pre op Patient Location: O HR:59 bpm ECG Measurements Heart Rate 59 AXIS GA 166 P 86 QRSd 88 QRS 58 QT 433 T 49 QTc 423 Conclusion Sinus bradycardia...rate< 60 Atrial premature complex...SV complex w/ short R-R interval Poor R wave progression Since previous atrial flutter has converted to sinus rhythm
[2023-09-20] MEDS: Normal Saline 1,000 ML 30 ML IV (07:45)
--- NOTE | 2023-09-20 08:05 | W.CARDVER ---
Date of service: 09/20/23 Time of Service: 08:05 Cardioversion DATE OF PROCEDURE: 09/20/23 PRE-OP DIAGNOSES: Atrial flutter POST-OP DIAGNOSES: same Indications: Symptomatic atrial flutter Procedure Description: After an informed consent was obtained for synchronized cardioversion, the patient was brought to the operating room and was sedated under the direction of the anesthesiologist. Anterior and posterior ZOLL pads were placed. When he was adequately sedated the patient received 1 synchronized shock at 150 watt seconds, converting from atrial flutter with variable block to sinus rhythm rate 60. Patient was brought to PACU to recover and will be discharged home when fully awake
--- NOTE | 2023-09-20 08:07 | W.PM.DSUDISC ---
Date of service: 09/20/23 Time of Service: 08:07 Discharge Plan Disposition Patient Disposition: Home Discharge Details Attending Provider: Selin Aj Primary Care Provider: Ifeanyi Pompa Home Meds and New Rx's Prescriptions: No Action metoprolol succinate 25 mg tablet extended release 24 hr 25 mg PO DAILY Qty: 90 3RF Eliquis 5 mg tablet 5 mg PO BID Qty: 60 8RF diltiazem HCl 240 mg capsule,extended release 24hr See Rx Instructions .ROUTE .COMPLEX Qty: 90 3RF Dose Instruction: TAKE 1 CAPSULE DAILY Rx Instructions: TAKE 1 CAPSULE DAILY diltiazem HCl [Cardizem] 30 mg tablet 30 mg PO DIRECTED PRN (Reason: tachycardia) Qty: 10 0RF Rx Instructions: Take a 30 mg tab as needed for heart rate greater than 140 bpm for more than 10 minutes. DS: Diagnosis Discharge Diagnosis (1) Atrial flutter: Status: Acute
--- NOTE | 2023-09-20 08:42 | W.ANESPOSTOP ---
Postoperative Evaluation Date, Time and Location Date Performed: 09/20/23 Time Performed: 08:30 Patient Location: PACU Vital Signs Most Recent Imported Vital Signs: Most Recent Vital Signs Temp Pulse Resp BP Pulse Ox 36.4 C L 63 10 L 99/70 L 98 09/20/23 08:30 09/20/23 08:30 09/20/23 08:30 09/20/23 08:30 09/20/23 08:30 Pain Score Most Recent Pain Score: Most Recent Pain Score Pain Level 0 09/20/23 08:30 Assessment Mental Status: Awake (Alert & Oriented to Patient Baseline) Airway and Respiratory Function: Patent airway with normal (patient baseline) respiratory exam Cardiovascular Function: Hemodynamically Stable Hydration Status: Adequately Hydrated Nausea & Vomiting: No Nausea or Vomiting Pain: Pt. Denies Any Pain Peripheral Nerve Block: Patient did not receive a nerve block
== END 2023-09-20 10:10 | disposition home or self-care (01) ==
PROVIDERS: PCP Nurse Practitioner Family; Visit Provider Internal Medicine Cardiovascular Disease
PROC: 5A2204Z Restoration of Cardiac Rhythm, Single (ICD-10-PCS; CPT 92960; principal; 2023-09-20 07:30)
DX: I48.4 Atypical atrial flutter (principal); I48.0 Paroxysmal atrial fibrillation
CPT/HCPCS: 92960; 93005; 93010

== ENCOUNTER → 2023-09-29 02:42 | Outpatient (CLI) | payer MEDICARE, SELFPAY | PROVIDERS: PCP Nurse Practitioner Family; Visit Provider Internal Medicine Cardiovascular Disease | DX: I48.91 Unspecified atrial fibrillation (principal) | CPT/HCPCS: 93306 ==

== ENCOUNTER 2023-10-08 08:41 | Outpatient (CLI) | payer MEDICARE, SELFPAY ==
--- NOTE | 2023-10-08 08:30 | RT.EKG_ITS ---
APPROVED REPORT Exam: Resting ECG Reason for Exam: aflutter Patient Location: O HR:127 bpm ECG Measurements Heart Rate 127 AXIS NV 70 P 0 QRSd 86 QRS 51 QT 304 T 19 QTc 442 Conclusion Sinus tachycardia...rate> 99 Nonspecific repol abnormality, inferior leads...ST dep, T neg, II III aVF REPOL ABNORMALITIES SUGGEST INFEROLATERAL ISCHEMIA
== END 2023-10-08 08:42 | disposition home or self-care (01) ==
LOC: DI.CARD 08:42
PROVIDERS: PCP Nurse Practitioner Family; Visit Provider Internal Medicine Interventional Cardiology
DX: I48.91 Unspecified atrial fibrillation (principal)
CPT/HCPCS: 93010

== ENCOUNTER → 2023-10-08 10:51 | Outpatient (BNVA) | payer MEDICARE, SELFPAY | PROVIDERS: PCP Nurse Practitioner Family; Referring Provider Nurse Practitioner Family; Visit Provider Internal Medicine Interventional Cardiology | DX: I48.4 Atypical atrial flutter (principal); I48.0 Paroxysmal atrial fibrillation; Z98.890 Other specified postprocedural states | CPT/HCPCS: 93005; 99213 ==

== ENCOUNTER 2023-11-01 08:38 | Outpatient (CLI) | payer MEDICARE, SELFPAY ==
--- NOTE | 2023-11-01 08:30 | RT.EKG_ITS ---
APPROVED REPORT Exam: Resting ECG Reason for Exam: afib/flutter Patient Location: O HR:103 bpm ECG Measurements Heart Rate 103 AXIS TN [id number] P [id number] QRSd 96 QRS 46 QT 391 T 37 QTc 512 Conclusion Atrial fibrillation...V-rate 99-109, irreg A-activity Borderline low voltage, extremity leads...all extremity leads <0.6mV Minimal ST depression, anterior leads...ST <-0.03mV, V2-V4 Prolonged QT interval...QTc >500mS ATRIAL FLUTTER I have reviewed and interpreted ECG and agree with software generated interpretation.
== END 2023-11-01 08:39 | disposition home or self-care (01) ==
LOC: DI.CARD 08:39
PROVIDERS: PCP Nurse Practitioner Family; Visit Provider Internal Medicine Interventional Cardiology
DX: I48.91 Unspecified atrial fibrillation (principal); I48.92 Unspecified atrial flutter
CPT/HCPCS: 93010

== ENCOUNTER → 2023-11-01 13:15 | Outpatient (BNVA) | payer MEDICARE, SELFPAY | PROVIDERS: PCP Nurse Practitioner Family; Referring Provider Nurse Practitioner Family; Visit Provider Internal Medicine Interventional Cardiology | DX: I48.91 Unspecified atrial fibrillation (principal); I48.92 Unspecified atrial flutter; I48.4 Atypical atrial flutter | CPT/HCPCS: 93005; 99213 ==

== ENCOUNTER 2024-02-01 07:51 | Outpatient (CLI) | payer MEDICARE, SELFPAY ==
--- NOTE | 2024-02-01 07:45 | RT.EKG_ITS ---
APPROVED REPORT Exam: Resting ECG Reason for Exam: afib Patient Location: O HR:76 bpm ECG Measurements Heart Rate 76 AXIS SC 161 P 113 QRSd 93 QRS 56 QT 518 T 18 QTc 583 Conclusion Sinus rhythm...normal P axis, V-rate 50- 99 Borderline T wave abnormalities...T/QRS ratio < 1/20 or flat T
== END 2024-02-01 07:52 | disposition home or self-care (01) ==
LOC: DI.CARD 07:52
PROVIDERS: PCP Nurse Practitioner Family; Visit Provider Internal Medicine Cardiovascular Disease
DX: I48.0 Paroxysmal atrial fibrillation (principal)
CPT/HCPCS: 93010

== ENCOUNTER → 2024-02-01 09:34 | Outpatient (BNVA) | payer MEDICARE, SELFPAY | PROVIDERS: PCP Nurse Practitioner Family; Referring Provider Nurse Practitioner Family; Visit Provider Internal Medicine Cardiovascular Disease | DX: I48.4 Atypical atrial flutter (principal); R94.31 Abnormal electrocardiogram [ECG] [EKG]; I48.0 Paroxysmal atrial fibrillation | CPT/HCPCS: 93005; 99213 ==

== ENCOUNTER → 2024-05-30 09:39 | Outpatient (BNVA) | payer MEDICARE, SELFPAY | PROVIDERS: PCP Nurse Practitioner Family; Visit Provider Internal Medicine Cardiovascular Disease | DX: I48.0 Paroxysmal atrial fibrillation (principal) | CPT/HCPCS: 99213 ==

== ENCOUNTER 2024-10-30 04:35 | Outpatient (CLI) | payer MEDICARE, SELFPAY ==
[2024-10-30 15:57] LABS: Calculated LDL 67 mg/dL (<100); Cholesterol 126 mg/dL (<200); HDL Cholesterol 45 mg/dL (40-60); Triglyceride 70 mg/dL (<150)
[2024-10-30 22:31] LABS: PSA, Screening 3.6 ng/mL (<=6.5)
== END 2024-10-30 04:36 | disposition home or self-care (01) ==
LOC: LBO 04:36
PROVIDERS: PCP Nurse Practitioner Family; Visit Provider Nurse Practitioner Family
DX: Z12.5 Encounter for screening for malignant neoplasm of prostate (principal); Z13.6 Encounter for screening for cardiovascular disorders
CPT/HCPCS: 36415; 80061; 84153